=== PATIENT | female | born 1995 | race Native Hawaiian/Other Pacific Islander ===

== ENCOUNTER 2020-08-08 19:48 | Emergency (ER) | payer OTHER ==
[~2020-08-08] VITALS: Ht 167.6 cm; Wt 141.1 kg
[2020-08-08 21:35] VITALS: BP 126/78; TEMP 98.4
== END 2020-08-08 21:35 | disposition home or self-care (01) ==
LOC: ED 19:48
DX: H65.191 Other acute nonsuppurative otitis media, right ear (principal); J06.9 Acute upper respiratory infection, unspecified; Z20.828 Contact with and (suspected) exposure to other viral communicable diseases
CPT/HCPCS: 87635; 99283; U0003

== ENCOUNTER 2020-12-20 16:17 | Emergency (ER) | payer OTHER ==
[2021-01-02 20:04] LABS: PLATELET COUNT 215 K/uL (152-353)
[2021-01-02 20:10] LABS: POTASSIUM 4.1 mmol/L (3.6-5.2)
== END 2020-12-20 19:15 | disposition home or self-care (01) ==
LOC: ED 16:17
PROVIDERS: Hospitalist
DX: M47.816 Spondylosis without myelopathy or radiculopathy, lumbar region (principal); G54.1 Lumbosacral plexus disorders; M43.07 Spondylolysis, lumbosacral region; M43.16 Spondylolisthesis, lumbar region
CPT/HCPCS: 36415; 80053; 81000; 82150; 83690; 85027; 96360; 96375; 99284; J1885; J2405; J2930; Q9963